=== PATIENT | female | born 1965 | race Caucasian/White ===

== ENCOUNTER 2017-06-12 07:25 | Day surgery (SDC) | payer OTHER ==
[2017-06-06 11:27] VITALS: BMI 37.0
[2017-06-12] MEDS ORDERED: PROPOFOL 20 ML ONE ×2 (07:30)
[2017-06-12 07:44] VITALS: TEMP 97.9
[2017-06-12] MEDS ORDERED: LIDOCAINE HCL/PF 2% SDV 5ML VIAL ONE (08:02)
[2017-06-12 09:28] VITALS: BP 142/78; PULSE 76
== END 2017-06-12 09:43 | disposition home or self-care (01) ==
LOC: FASU-ENDO 07:25
PROVIDERS: ATTEND Internal Medicine Gastroenterology
PROC: 0DJD8ZZ Inspection of Lower Intestinal Tract, Via Natural or Artificial Opening Endoscopic (ICD-10-PCS; principal; 2017-06-12 08:32)
DX: Z12.11 Encounter for screening for malignant neoplasm of colon (principal); K57.30 Diverticulosis of large intestine without perforation or abscess without bleeding